=== PATIENT | male | born 1995 | race Caucasian/White ===

== ENCOUNTER 2016-09-15 23:50 | Emergency (ER) | payer OTHER ==
[~2016-09-15] VITALS: Ht 172.7 cm; Wt 88.0 kg
[2016-09-16] MEDS ORDERED: IBUPROFEN 600 MG TAB PO ONE ×2 (07:32→07:45)
[2016-09-16 07:33] VITALS: BP 142/68
== END 2016-09-16 09:33 | disposition home or self-care (01) ==
LOC: ER 23:50
DX: S05.11XA Contusion of eyeball and orbital tissues, right eye, initial encounter (principal); S09.90XA Unspecified injury of head, initial encounter; W22.8XXA Striking against or struck by other objects, initial encounter; Y93.89 Activity, other specified; Y99.8 Other external cause status; Y92.69 Other specified industrial and construction area as the place of occurrence of the external cause
CPT/HCPCS: 70450; 70480

== ENCOUNTER 2020-05-17 16:39 | Emergency (ER) | payer OTHER ==
[~2020-05-17] VITALS: Ht 175.3 cm; Wt 81.6 kg
[2020-05-17] MEDS ORDERED: IBUPROFEN 800 MG TAB PO ONE ×2 (17:15→18:30)
[2020-05-17 17:20] VITALS: BP 126/75
== END 2020-05-17 19:11 | disposition home or self-care (01) ==
LOC: ER 16:39
DX: S42.021A Displaced fracture of shaft of right clavicle, initial encounter for closed fracture (principal); S62.654A Nondisplaced fracture of middle phalanx of right ring finger, initial encounter for closed fracture; V00.311A Fall from snowboard, initial encounter; Y93.23 Activity, snow (alpine) (downhill) skiing, snowboarding, sledding, tobogganing and snow tubing; Y92.89 Other specified places as the place of occurrence of the external cause; Y99.8 Other external cause status
CPT/HCPCS: 29125; 73000; 73120; 73130